=== PATIENT | female | born 1950 | race Caucasian/White ===

== ENCOUNTER 2020-01-14 15:48 | Emergency (ER) | payer OTHER ==
[~2020-01-14] VITALS: Ht 165.1 cm; Wt 64.4 kg
--- NOTE | 2020-01-14 15:53 | NUR ---
Dr Burns at the bedside for MSE.
--- NOTE | 2020-01-14 18:34 | NUR ---
[facility] AT BEDSIDE TO TRANSFER THE PT BACK TO [facility]. D/C PAPER WORK INCLUDING PX HANDED TO AMBULANCE PERSONNEL TO BE GIVEN TO [facility] PER PT REQUEST. PT D/ASHLEIGH IN STABLE CONDITION.
[2020-01-14 18:41] VITALS: BP 101/61
== END 2020-01-14 18:53 | disposition home or self-care (01) ==
LOC: ER 15:48
DX: J22 Unspecified acute lower respiratory infection (principal); R05 Cough; E03.9 Hypothyroidism, unspecified; Z88.5 Allergy status to narcotic agent
CPT/HCPCS: 71045; A4663